=== PATIENT | female | born 1960 | race Caucasian/White ===

== ENCOUNTER 2016-09-03 11:48 | Emergency (ER) | payer OTHER ==
[~2016-09-03] VITALS: Ht 157.4 cm; Wt 69.4 kg
[~2016-09-03 11:48] MED LIST: AMOXICILLIN500 M1 PO; CIPROFLOXACIN500 MG PO; DAYPRO600 M1 PO; FISH; FLAGYL500 MG PO; HYDROCODONE BIT1 T11 PO; MASON NATURAL1200 MG PO; MOTRIN800 MG PO; MULTIPLE VITAMI1 CAP PO; NORFLEX100 MG PO; PREDNICOT20 MG PO; PROZAC20 MG PO; Phenergan25 MG PO; RESTORIL30 MG PO
[2016-09-03 12:40] LABS: BASO % 0.4 % (0.0-1.0); EOS # 0.1 10*3/uL (0.0-0.4); EOS % 1.2 % (1.0-4.0); HEMATOCRIT 39.7 % (37.0-47.0); HEMOGLOBIN 13.1 g/dl (12.0-16.0); LYMPH # 4.5 10*3/uL (1.3-4.4); LYMPH % 44.5 % (27.0-41.0); MEAN CELL VOLUME 94.3 fl (81.0-99.0); MEAN CORPUSCULAR HGB 31.1 pg (27.0-31.0); MEAN PLATELET VOLUME 9.6 fl (9.6-12.3); MONO # 0.6 10*3/uL (0.1-1.0); MONO % 5.8 % (3.0-9.0); NEUT # 4.8 10*3/uL (2.3-7.9); NEUT % 47.8 % (47.0-73.0); PLATELET COUNT AUTOMATED 210 10*3/uL (130-400); RED BLOOD COUNT 4.21 10*6/uL (4.10-5.10); RED CELL DISTRI WIDTH 12.3 % (0-14.5)
[2016-09-03 12:54] LABS: ALBUMIN 3.5 gm/dl (3.1-4.5); ALKALINE PHOSPHATASE 91 U/L (45-117); BILIRUBIN, TOTAL 0.4 mg/dl (0.2-1.0); BUN 14 mg/dl (7-24); CARBON DIOXIDE 28 mmol/L (21-32); CHLORIDE 103 mmol/L (98-107); EST GLOM FILT AFRICAN AMERICAN > 60 ml/min; GLUCOSE 103 mg/dL (65-99); POTASSIUM 4.1 mmol/L (3.5-5.1); SGOT/AST 25 IU/L (3-35); SGPT/ALT 32 U/L (12-78); SODIUM 139 mmol/L (136-145); TOTAL PROTEIN 6.9 gm/dL (6.4-8.2)
[2016-09-03] MEDS ORDERED: MEDROL DOSEPAK4 MG PO (14:28)
[2016-09-03] MEDS ORDERED: MECLIZINE HCL25 M2 PO (14:28)
[2016-09-03] MEDS ORDERED: ROBITUSSIN AC 110 ML PO (14:28)
[2016-09-03] MEDS ORDERED: AUGMENTIN 875875 MG PO (14:28)
== END 2016-09-03 14:43 | disposition home or self-care (01) ==
LOC: ED 11:48
PROVIDERS: Physician Assistant
DX: J40 Bronchitis, not specified as acute or chronic (principal); R42 Dizziness and giddiness; R51 Headache; Z88.8 Allergy status to other drugs, medicaments and biological substances; Z79.899 Other long term (current) drug therapy

== ENCOUNTER → 2018-12-16 | Outpatient (CLI) | payer BC ==
[~2018-12-16] MED LIST changes: +AUGMENTIN 875875 MG PO; +MECLIZINE HCL25 M2 PO; +MEDROL DOSEPAK4 MG PO; +ROBITUSSIN AC 110 ML PO
--- NOTE | ~2018-12-16 | EKG ---
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
[2018-12-16 10:46] LABS: ALBUMIN 3.6 gm/dl (3.1-4.5); BUN 14 mg/dl (7-24); CHLORIDE 104 mmol/L (98-107); CHOLESTEROL 256 mg/dL (<200); CREATININE 0.77 mg/dL (0.55-1.02); POTASSIUM 4.2 mmol/L (3.5-5.1); SGOT/AST 18 IU/L (3-35); SGPT/ALT 24 U/L (12-78); SODIUM 137 mmol/L (136-145)
[2018-12-16 10:50] LABS: ALKALINE PHOSPHATASE 89 U/L (45-117); HDL CHOLESTEROL 57 mg/dl (40-60); LDL CHOLESTEROL 160 mg/dL (9-159); TOTAL PROTEIN 7.4 gm/dL (6.4-8.2); TRIGLYCERIDES 194 mg/dl (<150); VLDL CHOLESTEROL 39 mg/dL (6-40)
== END | disposition home or self-care (01) ==
LOC: LAB 09:47
PROVIDERS: Family Medicine
DX: R07.9 Chest pain, unspecified (principal)

== ENCOUNTER → 2019-01-13 | Outpatient (CLI) | payer BC | END | disposition home or self-care (01) | LOC: US 00:20 | DX: R10.11 Right upper quadrant pain (principal) ==

== ENCOUNTER 2019-03-08 10:13 | Emergency (ER) | payer OTHER, BC ==
[~2019-03-08] VITALS: Ht 157.4 cm; Wt 74.4 kg
[2019-03-08] MEDS ORDERED: CEPHALEXIN500 M1 PO (12:35)
[2019-03-08] MEDS ORDERED: ANTIBIOTIC28.4 GM T (12:35)
== END 2019-03-08 13:15 | disposition home or self-care (01) ==
LOC: ED 10:13
DX: S61.512A Laceration without foreign body of left wrist, initial encounter (principal); Z23 Encounter for immunization; Z88.8 Allergy status to other drugs, medicaments and biological substances; Z79.899 Other long term (current) drug therapy; W45.8XXA Other foreign body or object entering through skin, initial encounter; Y93.89 Activity, other specified; Y92.89 Other specified places as the place of occurrence of the external cause; Y99.8 Other external cause status

== ENCOUNTER → 2020-05-23 | Outpatient (CLI) | payer BC ==
[~2020-05-23] MED LIST changes: +ANTIBIOTIC28.4 GM T; +CEPHALEXIN500 M1 PO
== END | disposition home or self-care (01) ==
LOC: MAMMO 10:53
PROVIDERS: ATTEND Nurse Practitioner Primary Care
DX: Z12.31 Encounter for screening mammogram for malignant neoplasm of breast (principal); N64.89 Other specified disorders of breast

== ENCOUNTER → 2021-10-05 | Outpatient (CLI) | payer OTHER ==
[~2021-10-05] MED LIST changes: +ASPIRIN ADULT L81 M1 PO; +ATORVASTATIN CA10 M1 PO; +METFORMIN HYDR500 MG PO; +VITAMIN D350 MCG PO
== END | disposition home or self-care (01) ==
LOC: US 08:14
PROVIDERS: ATTEND Physician Assistant
DX: I65.23 Occlusion and stenosis of bilateral carotid arteries (principal); E11.9 Type 2 diabetes mellitus without complications; E78.2 Mixed hyperlipidemia; F17.210 Nicotine dependence, cigarettes, uncomplicated; R09.89 Other specified symptoms and signs involving the circulatory and respiratory systems

== ENCOUNTER → 2022-03-20 | Outpatient (CLI) | payer OTHER | END | disposition home or self-care (01) | LOC: MAMMO 03-05 08:30 | PROVIDERS: ATTEND Physician Assistant | DX: Z12.31 Encounter for screening mammogram for malignant neoplasm of breast (principal) ==

== ENCOUNTER → 2022-10-15 | Outpatient (CLI) | payer MEDICAID | END | disposition home or self-care (01) | LOC: RAD 11:32 | PROVIDERS: ATTEND Physician Assistant | DX: M16.11 Unilateral primary osteoarthritis, right hip (principal); M47.816 Spondylosis without myelopathy or radiculopathy, lumbar region ==

== ENCOUNTER → 2024-01-21 | Outpatient (CLI) | payer OTHER | END | disposition home or self-care (01) | LOC: US 09:44 | PROVIDERS: ATTEND Physician Assistant | DX: I65.23 Occlusion and stenosis of bilateral carotid arteries (principal); J44.9 Chronic obstructive pulmonary disease, unspecified; I25.10 Atherosclerotic heart disease of native coronary artery without angina pectoris; J98.11 Atelectasis; J43.2 Centrilobular emphysema; F17.210 Nicotine dependence, cigarettes, uncomplicated ==

== ENCOUNTER → 2024-02-29 | Day surgery (SDC) | payer OTHER ==
[~2024-02-29] VITALS: Ht 157.4 cm; Wt 86.6 kg
[~2024-02-29] MED LIST changes: +Lactated Ringer's Solution 500 ML IV ONE; +Lidocaine Hydrochloride 5 ML VIAL IV ONE; +PLAVIX75 M1 PO; +PROPOFOL 200 MG/20 ML VIAL IV ONE
[2024-02-29 07:20] VITALS: BP 135/56
[2024-02-29 08:48] VITALS: BP 108/63
[2024-02-29 09:03] VITALS: BP 107/59
[2024-02-29 09:18] VITALS: BP 131/66
== END | disposition home or self-care (01) ==
LOC: SDC 02-25 08:45
PROVIDERS: ATTEND Surgery
DX: Z12.11 Encounter for screening for malignant neoplasm of colon (principal); K64.8 Other hemorrhoids; K21.9 Gastro-esophageal reflux disease without esophagitis; E11.319 Type 2 diabetes mellitus with unspecified diabetic retinopathy without macular edema; E78.00 Pure hypercholesterolemia, unspecified; I25.10 Atherosclerotic heart disease of native coronary artery without angina pectoris; E78.2 Mixed hyperlipidemia; F41.9 Anxiety disorder, unspecified; F32.A Depression, unspecified; F17.210 Nicotine dependence, cigarettes, uncomplicated; Z85.828 Personal history of other malignant neoplasm of skin; Z98.890 Other specified postprocedural states; Z79.82 Long term (current) use of aspirin; Z79.84 Long term (current) use of oral hypoglycemic drugs; Z79.899 Other long term (current) drug therapy; Z88.8 Allergy status to other drugs, medicaments and biological substances; Z82.49 Family history of ischemic heart disease and other diseases of the circulatory system

== ENCOUNTER → 2024-03-02 | Outpatient (CLI) | payer OTHER ==
[~2024-03-02] MED LIST changes: -Lactated Ringer's Solution 500 ML IV ONE; -Lidocaine Hydrochloride 5 ML VIAL IV ONE; -PROPOFOL 200 MG/20 ML VIAL IV ONE
== END | disposition home or self-care (01) ==
LOC: MAMMO 02:11
PROVIDERS: ATTEND Physician Assistant
DX: Z12.31 Encounter for screening mammogram for malignant neoplasm of breast (principal); N63.10 Unspecified lump in the right breast, unspecified quadrant

== ENCOUNTER → 2024-03-23 | Outpatient (CLI) | payer OTHER | END | disposition home or self-care (01) | LOC: MAMMO 00:29 | PROVIDERS: ATTEND Physician Assistant | DX: R92.323 Mammographic fibroglandular density, bilateral breasts (principal); R92.8 Other abnormal and inconclusive findings on diagnostic imaging of breast ==

== ENCOUNTER → 2025-01-16 | Outpatient (CLI) | payer OTHER | END | disposition home or self-care (01) | LOC: ORTHO 01-13 14:33 | PROVIDERS: ATTEND Orthopaedic Surgery | DX: M16.0 Bilateral primary osteoarthritis of hip (principal); M47.898 Other spondylosis, sacral and sacrococcygeal region; M47.816 Spondylosis without myelopathy or radiculopathy, lumbar region; M48.061 Spinal stenosis, lumbar region without neurogenic claudication; M51.379 Other intervertebral disc degeneration, lumbosacral region without mention of lumbar back pain or lower extremity pain ==

== ENCOUNTER → 2025-01-25 | Outpatient (CLI) | payer OTHER | END | disposition home or self-care (01) | LOC: CT 09:38 | PROVIDERS: ATTEND Physician Assistant | DX: Z12.2 Encounter for screening for malignant neoplasm of respiratory organs (principal); F17.201 Nicotine dependence, unspecified, in remission; J98.4 Other disorders of lung ==